=== PATIENT | female | born 1945 | race Caucasian/White ===

== ENCOUNTER 2017-11-19 05:17 | Inpatient (IN) | payer OTHER ==
[2017-11-12 13:04] VITALS: BMI 28.1
--- NOTE | 2017-11-19 09:33 | HP ---
Past Medical History - Primary Care Physician PCP:: José Luis Haney - Admission Chief Complaint: pelvic, back pain, fibroid uterus History of Present Illness: 72 yo f HX of pelvic pain , large fibroid uterus admitted for supracervical abdominal hysterectomy, BSO, rba discussed History Source: Patient Limitations to Obtaining History: No Limitations - Past Medical History Cardiovascular: Yes: HTN, Hyperlipdemia - Past Surgical History Past Surgical History: Yes: None, Cystectomy (ovarian cystectomy many years ago) Hx Myomectomy: No Hx Transabdominal Cerclage: No - Smoking History Smoking history: Former smoker Have you smoked in the past 12 months: No If you are a former smoker, when did you quit?: 1982 - Alcohol/Substance Use Hx Alcohol Use: Yes (THREE TIMES A WEEK) History of Substance Use: reports: None - Social History ADL: Independent History of Recent Travel: No Home Medications - Allergies Allergies/Adverse Reactions: Allergies Allergy/AdvReac Type Severity Reaction Status Date / Time soy Allergy Severe Hives Verified 11/12/17 12:51 - Home Medications Home Medications: Ambulatory Orders Atorvastatin Ca [Lipitor] 10 mg PO HS 05/20/15 Ramipril 10 mg PO DAILY 11/12/17 Family Disease History - Family Disease History Family Disease History: Heart Disease: Mother Review of Systems - Review of Systems Constitutional: reports: No Symptoms Eyes: reports: No Symptoms HENT: reports: No Symptoms Neck: reports: No Symptoms Cardiovascular: reports: No Symptoms Respiratory: reports: No Symptoms Gastrointestinal: reports: Abdominal Pain, Bloating Genitourinary: reports: Frequency Breasts: reports: No Symptoms Reported Musculoskeletal: reports: No Symptoms Integumentary: reports: No Symptoms Neurological: reports: No Symptoms Endocrine: reports: No Symptoms Psychiatric: reports: No Symptoms Physical Exam-CONDUIT HELPER Constitutional: Yes: Well Nourished, No Distress, Calm Eyes: Yes: WNL, Conjunctiva Clear, EOM Intact HENT: Yes: WNL, Atraumatic, Normocephalic Neck: Yes: WNL, Supple, Trachea Midline Cardiovascular: Yes: WNL, Regular Rate and Rhythm Respiratory: Yes: WNL, Regular, CTA Bilaterally Gastrointestinal: Yes: WNL ...Rectal Exam: Yes: WNL Renal/: Yes: WNL Pelvis: Yes: WNL External Genitalia: Yes: Normal Internal Exam Deferred: No Vaginal Exam: Yes: Normal Cervix: Yes: Normal Uterus: Yes: Enlarged, Mass (large post myoma, 7 cm by sono), Retroverted, Tender Breast(s): Yes: WNL Musculoskeletal: Yes: WNL Extremities: Yes: WNL Edema: No Integumentary: Yes: WNL Neurological: Yes: WNL, Alert, Oriented ...Motor Strength: WNL Psychiatric: Yes: WNL, Alert, Oriented Problem List - Problem (1) Pelvic pain in female Code(s): R10.2 - PELVIC AND PERINEAL PAIN (2) Fibroid, uterine Code(s): D25.9 - LEIOMYOMA OF UTERUS, UNSPECIFIED Qualifiers: Uterine leiomyoma location: intramural Qualified Code(s): D25.1 - Intramural leiomyoma of uterus Assessment/Plan admit for supracervical abdominal hysterectomy, BSO, rba discussed
[2017-11-19] MEDS ORDERED: CEFAZOLIN 1 GM/D5W 1 GM/50 ML BAG IVPB ONE (09:35)
[2017-11-19] MEDS ORDERED: ROPIVACAINE HCL 0.5% 30ML VIAL ONE (10:10)
[2017-11-19] MEDS ORDERED: MIDAZOLAM HCL 2 MG/2 ML SINGLE DOSE VIAL ONE ×2 (10:11)
[2017-11-19] MEDS ORDERED: DEXAMETHASONE SOD PHOSPHATE/PF 10 MG/ML SDV ONE (11:27)
[2017-11-19] MEDS ORDERED: ONDANSETRON 4 MG/2 ML VIAL ONE (12:01)
[2017-11-19] MEDS ORDERED: DEXAMETHASONE SOD PHOSPHATE 4 MG/1 ML VIAL ONE ×2 (12:01→12:54)
[2017-11-19] MEDS ORDERED: ceFAZolin SODIUM 1 GM VIAL ONE (12:01)
[2017-11-19] MEDS ORDERED: LIDOCAINE HCL/PF 2% SDV 5ML VIAL ONE (12:01)
[2017-11-19] MEDS ORDERED: PROPOFOL 20 ML ONE (12:02)
[2017-11-19] MEDS ORDERED: ROCURONIUM BROMIDE 50 MG/5 ML VIAL ONE (12:03)
[2017-11-19] MEDS ORDERED: ceFAZolin SODIUM 1 GM VIAL IVPB ONE (12:15)
[2017-11-19] MEDS ORDERED: PROMETHAZINE HCL 25 MG/1 ML VIAL IVPB PRN (12:38)
[2017-11-19] MEDS ORDERED: HYDROmorphone HCL CARPU-JECT 1 MG/1 ML DISP.SYRIN IVPUSH PRN (12:38)
[2017-11-19] MEDS ORDERED: HYDROmorphone *PCA* 10MG/50ML DISP.SYRIN PCA SCH (12:45)
[2017-11-19] MEDS ORDERED: NEOSTIGMINE METHYLSULFATE 0.5 MG/ML - 10 ML MDV ONE (12:54)
[2017-11-19] MEDS ORDERED: GLYCOPYRROLATE 0.2 MG/1 ML VIAL ONE (12:56)
[2017-11-19] MEDS ORDERED: ONDANSETRON 4 MG/2 ML VIAL IVPUSH PRN (13:33)
[2017-11-19] MEDS ORDERED: IBUPROFEN 800 MG/8 ML IJ IVPB PRN (13:33)
[2017-11-19] MEDS ORDERED: HYDROmorphone HCL CARPU-JECT 2 MG/1 ML DISP.SYRIN ONE (13:36)
[2017-11-19] MEDS ORDERED: HYDROmorphone HCL CARPU-JECT 2 MG/1 ML DISP.SYRIN IVPUSH ONE ×3 (13:40→14:00)
[2017-11-19] MEDS ORDERED: HYDROmorphone *PCA* 10MG/50ML DISP.SYRIN PCA ONE (14:15)
[2017-11-19] MEDS ORDERED: HYDROmorphone HCL CARPU-JECT 2 MG/1 ML DISP.SYRIN IVPUSH PRN (15:16)
[2017-11-19] MEDS ORDERED: CEFAZOLIN 1 GM/D5W 1 GM/50 ML BAG IVPB SCH (18:00)
[2017-11-19] MEDS: ONDANSETRON 4 MG/2 ML VIAL IVPUSH PRN (18:37)
[2017-11-19] MEDS ORDERED: CEFAZOLIN 1 GM PUSH 1 GM/10 ML DISP.SYRIN IVPUSH SCH (19:09)
[2017-11-19] MEDS: ATORVASTATIN CA 10 MG TABLET (FP) PO SCH (22:00)
--- NOTE | 2017-11-20 08:40 | PN ---
Progress Note (short form) - Note Progress Note: pod 1 c/o gas pain. has mild low abdominal cramps Last Vital Signs Temp Pulse Resp BP Pulse Ox 98.2 F 88 18 119/67 97 11/20/17 06:00 11/20/17 06:00 11/20/17 06:00 11/20/17 06:00 11/19/17 18:00 abdomen soft, no distension, no cva. BS present incision dry, clean no calf tenderness no vaginal bleeding giron clear urine impression doing well, pod 1 plan ambulate, advance diet, cbc dvt prophylaxis Problem List - Problems (1) Pelvic pain in female Code(s): R10.2 - PELVIC AND PERINEAL PAIN (2) Fibroid, uterine Code(s): D25.9 - LEIOMYOMA OF UTERUS, UNSPECIFIED Qualifiers: Uterine leiomyoma location: intramural Qualified Code(s): D25.1 - Intramural leiomyoma of uterus
[2017-11-20] MEDS ORDERED: BISACODYL 10 MG SUPP.RECT RC PRN (08:45)
[2017-11-20 09:05] LABS: HEMATOCRIT 36.4 % (32.4-45.2); HEMOGLOBIN 11.9 GM/dL (10.7-15.3); MCH 28.5 pg (25.7-33.7); MCHC 32.8 g/dl (32.0-36.0); MEAN CELL VOLUME 86.9 fl (80-96); PLATELET COUNT 218 K/MM3 (134-434); RBC 4.19 M/mm3 (3.60-5.2); RDW 13.1 % (11.6-15.6); WHITE BLOOD COUNT 11.7 K/mm3 (4.0-10.0)
[2017-11-20] MEDS: ONDANSETRON 4 MG/2 ML VIAL IVPUSH PRN (09:07)
[2017-11-20 09:09] LABS: ANION GAP 8 (8-16); BLOOD UREA NITROGEN 20 mg/dL (7-18); CALCIUM 8.4 mg/dL (8.5-10.1); CHLORIDE 104 mmol/L (98-107); CO2 28 mmol/L (21-32); CREATININE 0.9 mg/dL (0.55-1.02); GLUCOSE,RANDOM 109 mg/dL (74-106); SODIUM 140 mmol/L (136-145)
--- NOTE | 2017-11-20 09:24 | OP ---
DATE OF OPERATION: 11/19/2017 PREOPERATIVE DIAGNOSES: Pelvic pain. Fibroid uterus. POSTOPERATIVE DIAGNOSES: Pelvic pain. Fibroid uterus. PROCEDURES: Supracervical abdominal hysterectomy and left salpingo-oophorectomy. SURGEON: Rick Singh MD TINSEL MACHINE OPERATOR: Ines Guerra MD ESTIMATED BLOOD LOSS: 100 mL. OPERATION: The patient was taken to the operating room and had adequate general anesthesia. Abdomen and perineum were prepped and draped. Pfannenstiel abdominal skin incision was made over the previous incision. Abdominal wall was cut [id number]. Anterior peritoneum was exposed and incised. Upon entering the abdominal cavity, upper abdomen when checked was normal. Bowels were packed away. There was a large fibroid uterus posterior to the fundal area incarcerating into the pelvic rim, which was delivered onto the surface. Both cornual regions were grasped with Melissa clamps. The right tube and ovary were missing from the previous salpingo-oophorectomy. The left tube and ovary appeared to be normal. Bladder was normal. Then, anterior leaf of broad ligament was opened and bladder was pushed down. Both round ligaments were identified, grasped with the bipolar cautery, cauterized, and cut. Then, bladder was further pushed down. The left infundibulopelvic ligament was identified. A hole was made in the broad ligament. The left infundibulopelvic ligament was grasped with a Cameron clamp, and cut, and the clamp replaced with 2-0 Vicryl ties. At this time, the bladder was further pushed down. Uterine artery was identified bilaterally, clamped with the Cameron clamp, cut, and the clamp replaced with 3-0 Vicryl suture bilaterally. Then, paracervical area was grasped with Cameron clamp, cut, and the clamp replaced with 3-0 Vicryl suture bilaterally. Then, specimen was removed above the cervix with cautery and then the cervix was sutured with interrupted suture of 2-0 Vicryl. Hemostasis was established. Then, pelvic reperitonealization was done with a continuous suture of 3-0 Vicryl and both ureters were checked were normal manually. Then, pelvic cavity several times irrigated and no active bleeding was seen. All the laparotomy sponge and instrument counts were correct. Peritoneum was closed with 0 Vicryl continuous suture, muscles were brought together with interrupted suture of 3-0 Vicryl, fascia was closed with 3-0 Vicryl continuous suture, subcutaneous fat interrupted suture of 3-0 Vicryl, and the skin was closed with 4-0 Biosyn subcuticular continuous suture. Patient tolerated procedure well. Left the OR in good condition. RICK SINGH M.D. [id number]
[2017-11-20] MEDS: IBUPROFEN 600 MG TABLET (FP) PO PRN (09:57)
[2017-11-20] MEDS: ACETAMINOPHEN 325 MG TABLET (FP) PO PRN ×4 (09:58→21:32)
[2017-11-20] MEDS: SIMETHICONE 80 MG TAB.CHEW (FP) PO PRN ×3 (09:59→17:28)
[2017-11-20] MEDS: RAMIPRIL 5 MG CAPSULE (FP) PO SCH ×2 (10:03→19:19)
[2017-11-20] MEDS: ENOXAPARIN NA (PORCINE) 40 MG/0.4 ML DISP.SYRIN SQ SCH (10:07)
[2017-11-20] MEDS ORDERED: PCA PUMP KEY 1 EACH EACH ONE (11:16)
[2017-11-20] MEDS ORDERED: ONDANSETRON 4 MG TABLET PO PRN (12:34)
[2017-11-20] MEDS: oxyCODONE HCL 5 MG TABLET PO PRN ×3 (13:31→21:31)
--- NOTE | 2017-11-20 14:08 | PN ---
Progress Note (short form) - Note Progress Note: Patient seen. Doing well on POD#1 after supracervical HYST and BTL under GETA with Bilat TAP block. Dilaudid PRACTICE SPECIALIST was d/cd earlier. Today pt is c/o intermittent pain being succefully rxd with motrin/tylenol and oxycodone prn. No sig N/V/pruritis/sedation. No recall or anesthesia related complications. Plan: cont present managment and recall prn
[2017-11-20] MEDS ORDERED: ONDANSETRON 8 MG TABLET (FP) PO PRN (15:56)
[2017-11-20] MEDS: ELECTROLYTE-148 SOLN 1,000 ML IV SCH ×2 (19:19→19:20)
[2017-11-20] MEDS: PANTOPRAZOLE 40 MG TABLET (FP) PO SCH (20:04)
[2017-11-20] MEDS: ATORVASTATIN CA 10 MG TABLET (FP) PO SCH (21:32)
[2017-11-21] MEDS: ACETAMINOPHEN 325 MG TABLET (FP) PO PRN ×2 (06:47→13:03)
[2017-11-21] MEDS: oxyCODONE HCL 5 MG TABLET PO PRN (06:48)
[2017-11-21] MEDS: RAMIPRIL 5 MG CAPSULE (FP) PO SCH (09:26)
[2017-11-21] MEDS: ENOXAPARIN NA (PORCINE) 40 MG/0.4 ML DISP.SYRIN SQ SCH (09:26)
[2017-11-21] MEDS: PANTOPRAZOLE 40 MG TABLET (FP) PO SCH (09:27)
[2017-11-21 11:51] VITALS: BP 121/64; PULSE 66; TEMP 97.8
[2017-11-21] MEDS: SIMETHICONE 80 MG TAB.CHEW (FP) PO PRN (13:02)
[2017-11-21] MEDS: IBUPROFEN 600 MG TABLET (FP) PO PRN (13:02)
--- NOTE | 2017-11-21 14:25 | DS ---
Physical Exam-DATA CONSULTANT Vital Signs: Vital Signs Temperature 97.8 F 11/21/17 10:00 Pulse Rate 66 11/21/17 10:00 Respiratory Rate 18 11/21/17 10:00 Blood Pressure 121/64 11/21/17 10:00 O2 Sat by Pulse Oximetry (%) 97 11/19/17 18:00 Constitutional: Yes: Well Nourished, No Distress, Calm Eyes: Yes: WNL, Conjunctiva Clear, EOM Intact HENT: Yes: WNL, Atraumatic, Normocephalic Neck: Yes: WNL, Supple, Trachea Midline Cardiovascular: Yes: WNL, Regular Rate and Rhythm Respiratory: Yes: WNL, Regular, CTA Bilaterally Gastrointestinal: Yes: WNL ...Rectal Exam: Yes: WNL Renal/: Yes: WNL Breast(s): Yes: WNL Musculoskeletal: Yes: WNL Extremities: Yes: WNL Edema: No Integumentary: Yes: WNL Wound/Incision: Yes: Clean/Dry, Well Approximated, Sutures Intact Neurological: Yes: WNL, Alert, Oriented ...Motor Strength: WNL Psychiatric: Yes: WNL, Alert, Oriented Labs: CBC, BMP 11/20/17 08:00 11/20/17 08:00 Discharge Summary Reason For Visit: PELVIC PAIN/FIBROID UTERUS Current Active Problems Fibroid, uterine (Acute) Pelvic pain in female (Acute) Procedures: Principal: supracervical abdominal hysterectomy, LSO Condition: Good - Instructions Diet, Activity, Other Instructions: regular diet, follow up office 1 week, if pain, fever call md Referrals: José Luis Haney MD [Staff Physician] - - Home Medications Comprehensive Discharge Medication List: Ambulatory Orders Atorvastatin Ca [Lipitor] 10 mg PO HS 05/20/15 Ramipril 10 mg PO DAILY 11/12/17
--- NOTE | 2017-11-22 09:43 | PATH ---
Surgical Pathology Report Patient Name: BILL MARIE [facility]. Rec. 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 Specimen(s) Received UTERUS, LEFT OVARY, LEFT FALLOPIAN TUBE Clinical History Pelvic pain, fibroid uterus Final Diagnosis UTERUS, OVARY AND FALLOPIAN TUBE, LEFT, SUPRACERVICAL HYSTERECTOMY WITH LEFT SALPINGO-OOPHORECTOMY: ATROPHIC ENDOMETRIUM. MYOMETRIUM WITH INTRAMURAL LEIOMYOMATA. SCANT BENIGN ENDOCERVIX. LEFT OVARY WITHOUT SIGNIFICANT PATHOLOGIC FINDINGS. LEFT FALLOPIAN TUBE WITH PARATUBAL CYST. Electronically Signed Padmini Lopes M.D. Gross Description Received in formalin labeled "uterus, left ovary, left tube," is a 348 g supracervically amputated uterus with an attached left fallopian tube and left ovary. The specimen measures 6 cm from superior to inferior, 7 cm from left to right and 9.3 cm from anterior to posterior. The serosa is white-espino and smooth. The endometrial cavity measures 4.5 cm in length and 2.5 cm from cornu to cornu. The endometrium is white and averages 0.1 cm in thickness. Sectioning reveals an 8.5 cm in greatest dimension white, firm intramural nodule replacing the myometrium on the posterior aspect of the specimen. Sectioning of the nodule reveals white, firm, trabeculated architecture. No areas of hemorrhage or necrosis are identified. There is an additional 1 cm in greatest dimension intramural nodule identified on the anterior aspect of the specimen. The remaining myometrium is white-pink and averages 1 cm in thickness on the anterior aspect of the specimen. The left fimbriated fallopian tube measures 3.5 cm in length. The outer surface is white-espino with adhesions. Sectioning reveals an unremarkable lumen. The left ovary measures 2.0 x 1.4 x 0.9 cm. The outer surface is white and smooth. Sectioning reveals white white ovarian parenchyma. Claims Processor sections are submitted in 13 cassettes as follows: 1-cervical stump margin of resection; 2-0-rirnkzeg endomyometrium; 0-2-nlwrwjyam endometrium; 6-smaller intramural nodule; 7-10-larger intramural nodule; 11-left fallopian tube fimbria; 12-cross sections of left fallopian tube; 13-left ovary. DL11/20/201711/20/2017
== END 2017-11-21 14:32 | disposition home or self-care (01) | DRG 743 ==
LOC: JSAMEDAYSX 05:17 → EDSTATUS 11:00 → J3W 15:39
PROVIDERS: ADMIT Obstetrics & Gynecology; ATTEND Obstetrics & Gynecology
PROC: 0UT90ZL Resection of Uterus, Supracervical, Open Approach (ICD-10-PCS; principal; 2017-11-20)
PROC: 0UT60ZZ Resection of Left Fallopian Tube, Open Approach (ICD-10-PCS; 2017-11-20)
PROC: 0UT10ZZ Resection of Left Ovary, Open Approach (ICD-10-PCS; 2017-11-20)
DX: D25.1 Intramural leiomyoma of uterus (principal); N83.8 Other noninflammatory disorders of ovary, fallopian tube and broad ligament; R10.2 Pelvic and perineal pain; I10 Essential (primary) hypertension; E78.5 Hyperlipidemia, unspecified; M54.9 Dorsalgia, unspecified
CPT/HCPCS: 36415; 80048; 85027; 86850; 86900; 86901; 88307-TC; 94760